=== PATIENT | female | born 1935 | race Caucasian/White ===

== ENCOUNTER 2017-12-04 13:41 | Emergency (ER) | payer MEDICARE ==
[~2017-12-04 13:41] MED LIST: CLOP75TA14 PO; CRAN250T2 PO; CRAN450T6 PO; FURO40TA7 PO; HYDR-4060 PO; IPRA3AMP24 IH; LOSA25TA16 PO; LUBI24CA2 PO; OMEP20TA25 PO; SOTA80TA PO; SPIR25TA PO
[2017-12-04 14:18] LABS: APPEARANCE,URINE Cloudy (CLEAR); BILIRUBIN,URINE Negative (NEGATIVE); COLOR,URINE Yellow (YELLOW); GLUCOSE, URINE (UA) Negative (NEGATIVE); KETONES,URINE Negative (NEGATIVE); LEUKOCYTE ESTERASE ,URINE Trace (NEGATIVE); NITRATE,URINE Negative (NEGATIVE); OCCULT BLOOD,URINE Negative (NEGATIVE); PROTEIN,URINE Negative (NEGATIVE)
[2017-12-04 14:35] LABS: BASOPHILS % (AUTO) 1.3 % (0.0-5.0); EOSINOPHILS % (AUTO) 5.8 % (0.0-8.0); HEMATOCRIT 31.7 % (36-48); LYMPHOCYTES % (AUTO) 12.3 % (21.0-51.0); MEAN CORPUSCULAR HEMOGLOBIN 25.8 pg (27.0-33.0); MEAN CORPUSCULAR HGB CONC 32.8 g/dL (32.0-36.0); MEAN CORPUSCULAR VOLUME 78.5 fL (79-99); MONOCYTES % (AUTO) 8.7 % (3.0-13.0); NEUTROPHILS % (AUTO) 71.9 % (40.0-77.0); PLATELET COUNT (AUTO) 237 K/uL (130-400); RED BLOOD CELL COUNT(AUTO) 4.03 MIL/uL (4.00-5.50); RED CELL DISTRIBUTION WIDTH 21.4 % (11.0-15.5)
[2017-12-04 14:40] LABS: BACTERIA,URINE Few /HPF (None Seen); MUCUS,URINE Few LPF (None Seen); RBC,URINE None Seen /HPF (0-1); WBC,URINE 0-1 /HPF (0-1)
[2017-12-04 14:45] LABS: POTASSIUM 4.4 mmol/L (3.5-5.1)
[2017-12-04 14:50] LABS: ALBUMIN 3.7 g/dL (3.5-5.0); BILIRUBIN,TOTAL 0.5 mg/dL (0.2-1.0); TOTAL PROTEIN, SERUM 7.7 g/dL (6.0-8.3)
[2017-12-04] MEDS ORDERED: MORPHINE SULFATE 4 MG/1ML SYG ONE (15:14)
[2017-12-04] MEDS ORDERED: ONDANSETRON HCL 4 MG/2 ML VIAL ONE (15:15)
[2017-12-04] MEDS ORDERED: DiphenhydrAMINE HCL 50 MG/ML VIAL ONE (15:22)
[2017-12-04 15:44] LABS: AMYLASE 31 U/L (25-115); LIPASE 181 U/L (114-286)
[2017-12-04] MEDS ORDERED: TRAMADOL HCL 50 MG TABLET ONE (16:45)
== END 2017-12-04 17:15 | disposition home or self-care (01) ==
LOC: EDH 13:41
DX: M54.14 Radiculopathy, thoracic region (principal); N28.9 Disorder of kidney and ureter, unspecified; I48.91 Unspecified atrial fibrillation; I11.0 Hypertensive heart disease with heart failure; I50.9 Heart failure, unspecified; I25.10 Atherosclerotic heart disease of native coronary artery without angina pectoris; J44.9 Chronic obstructive pulmonary disease, unspecified; K21.9 Gastro-esophageal reflux disease without esophagitis; Z88.6 Allergy status to analgesic agent; Z88.0 Allergy status to penicillin; Z88.2 Allergy status to sulfonamides; Z91.030 Bee allergy status; Z87.891 Personal history of nicotine dependence
CPT/HCPCS: 36415; 74176; 80053; 81001; 82150; 83690; 83880; 84484 ×2; 85025; 93005; 96374; 96375; 99285; J1200; J2270; J2405

== ENCOUNTER → 2018-03-07 | Outpatient (CLI) | payer MEDICARE ==
[~2018-03-07] MED LIST changes: -LOSA25TA16 PO; +LOSA25TA41 PO
== END | disposition home or self-care (01) ==
LOC: OIH 15:34
PROVIDERS: ATTEND Internal Medicine Cardiovascular Disease
DX: R06.00 Dyspnea, unspecified (principal); M47.815 Spondylosis without myelopathy or radiculopathy, thoracolumbar region
CPT/HCPCS: 71046

== ENCOUNTER 2018-06-27 23:30 | Emergency (ER) | payer MEDICARE ==
[2018-06-28] MEDS ORDERED: ONDANSETRON HCL 4 MG/2 ML VIAL ONE (00:41)
[2018-06-28] MEDS ORDERED: FENTANYL CITRATE PF 50 MCG/1 ML 2ML VIAL ONE (00:42)
[2018-06-28 00:53] LABS: APPEARANCE,URINE SL CLOUDY (CLEAR); BILIRUBIN,URINE NEGATIVE (NEGATIVE); COLOR,URINE YELLOW (YELLOW); GLUCOSE, URINE (UA) NEGATIVE (NEGATIVE); KETONES,URINE NEGATIVE (NEGATIVE); LEUKOCYTE ESTERASE ,URINE MODERATE (NEGATIVE); NITRATE,URINE POSITIVE (NEGATIVE); OCCULT BLOOD,URINE SMALL (NEGATIVE); PH,URINE 5.5 (5.0-8.0); PROTEIN,URINE NEGATIVE (NEGATIVE); UROBILINOGEN,URINE 0.2 mg/dL (0.2-1.0)
[2018-06-28 01:05] LABS: BACTERIA,URINE Many /HPF (None Seen); MUCUS,URINE Few LPF (None Seen); WBC,URINE 51-100 /HPF (0-1)
[2018-06-28 01:16] LABS: BASOPHILS % (AUTO) 1.2 % (0.0-5.0); HEMATOCRIT 34.2 % (36-48); LYMPHOCYTES % (AUTO) 14.7 % (21.0-51.0); MEAN CORPUSCULAR HEMOGLOBIN 28.7 pg (27.0-33.0); MEAN CORPUSCULAR HGB CONC 33.7 g/dL (32.0-36.0); MEAN CORPUSCULAR VOLUME 85.1 fL (79-99); MONOCYTES % (AUTO) 9.7 % (3.0-13.0); NEUTROPHILS % (AUTO) 71.4 % (40.0-77.0); PLATELET COUNT (AUTO) 204 K/uL (130-400); RED BLOOD CELL COUNT(AUTO) 4.02 MIL/uL (4.00-5.50); RED CELL DISTRIBUTION WIDTH 15.9 % (11.0-15.5); WHITE BLOOD COUNT (AUTO) 4.8 K/uL (4.8-10.8)
[2018-06-28 01:16] LABS: AMPHET/METH SCREEN,URINE NEGATIVE (NEGATIVE); BARBITURATE SCREEN, URINE NEGATIVE (NEGATIVE); BENZODIAZEPINES SCREEN,URINE NEGATIVE (NEGATIVE); CANNABINOID SCREEN,URINE POSITIVE (NEGATIVE); COCAINE SCREEN,URINE NEGATIVE (NEGATIVE); OPIATE SCREEN,URINE NEGATIVE (NEGATIVE); PHENCYCLIDINE SCREEN,URINE NEGATIVE (NEGATIVE)
[2018-06-28] MEDS ORDERED: LEVOFLOXACIN 500 MG/D5W 100 ML 100 ML ONE (01:26)
[2018-06-28 01:27] LABS: CREATININE 1.6 mg/dL (0.5-1.5)
[2018-06-28 01:32] LABS: INR 0.94 (0.85-1.15); PARTIAL THROMBOPLASTIN TIME 33.7 SEC (26.3-35.5); PROTHROMBIN TIME 9.9 SEC (9.6-11.6)
[2018-06-28 01:36] LABS: ALBUMIN 3.6 g/dL (3.5-5.0); BILIRUBIN,DIRECT 0.1 mg/dL (0.0-0.3); BILIRUBIN,TOTAL 0.4 mg/dL (0.2-1.0); TOTAL PROTEIN, SERUM 7.6 g/dL (6.0-8.3)
== END 2018-06-28 02:24 | disposition home or self-care (01) ==
LOC: EDH 23:30
DX: N12 Tubulo-interstitial nephritis, not specified as acute or chronic (principal); I11.0 Hypertensive heart disease with heart failure; I50.9 Heart failure, unspecified; I25.10 Atherosclerotic heart disease of native coronary artery without angina pectoris; I48.91 Unspecified atrial fibrillation; J44.9 Chronic obstructive pulmonary disease, unspecified; Z88.0 Allergy status to penicillin; Z88.2 Allergy status to sulfonamides; Z88.5 Allergy status to narcotic agent; Z88.6 Allergy status to analgesic agent; Z91.030 Bee allergy status; Z91.041 Radiographic dye allergy status
CPT/HCPCS: 36415; 74176; 80048; 80076; 80305; 81001; 83690; 84484; 85025; 85610; 85730; 93005; 96365; 96375; 99285; J1956; J2405; J3010; 96374

== ENCOUNTER 2020-01-01 00:28 | Inpatient (IN) | payer MEDICARE ==
[2020-01-01] VITALS (31 sets, daily range): BP systolic 58–131; BP diastolic 30–85
[~2020-01-01] VITALS: Ht 167.6 cm; Wt 76.2 kg
[2020-01-01] MEDS ORDERED: NITROGLYCERIN 50 MG/D5% WATER 0 BOT ONE (00:57)
[2020-01-01] MEDS ORDERED: BIVALIRUDIN 250 MG/VIAL IV ONE (01:05)
[2020-01-01] MEDS ORDERED: HEPARIN SODIUM 1000UNIT/ML 10ML VIAL ONE (01:05)
[2020-01-01] MEDS ORDERED: IOHEXOL 350 MG/ML 100ML INFUS..BTL IV ONE (01:06)
[2020-01-01] MEDS ORDERED: IOHEXOL-350 50ML VIAL IV ONE (01:06)
[2020-01-01] MEDS ORDERED: NITROGLYCERIN 2 MG/VIAL VIAL IV ONE (01:06)
[2020-01-01] MEDS ORDERED: LIDOCAINE HCL 2% 20ML ONE (01:06)
[2020-01-01] MEDS ORDERED: MIDAZOLAM HCL 1 MG/ML 2ML VIAL ONE (01:07)
[2020-01-01] MEDS ORDERED: ONDANSETRON HCL 4 MG/2 ML VIAL ONE (01:08)
[2020-01-01] MEDS ORDERED: HEPARIN SODIUM 5000UNIT/ML 1ML VIAL ONE (01:08)
[2020-01-01] MEDS ORDERED: TICAGRELOR 90 MG TABLET ONE (01:15)
[2020-01-01] MEDS ORDERED: METHYLPREDNISOLONE SOD SUCC 125MG/2ML VIAL ONE (01:23)
[2020-01-01] MEDS ORDERED: DiphenhydrAMINE HCL 50 MG/ML VIAL ONE (01:23)
[2020-01-01] MEDS ORDERED: MAG HYDROX/AL HYDROX/SIMETH ES 30 ML SUSP UDCUP PO PRN (01:30)
[2020-01-01] MEDS ORDERED: ONDANSETRON HCL 4 MG/2 ML VIAL IV PRN (01:30)
[2020-01-01] MEDS ORDERED: ACETAMINOPHEN 325 MG TAB PO PRN ×2 (01:30)
[2020-01-01] MEDS ORDERED: LACTULOSE 20 GM/30 ML UDCUP PO PRN (01:30)
[2020-01-01] MEDS ORDERED: FENTANYL CITRATE PF 50 MCG/1 ML 2ML VIAL ONE (01:32)
[2020-01-01] MEDS ORDERED: NOREPINEPHRINE BITARTRATE 1 MG/1 ML ML IV ONE (01:40)
[2020-01-01] MEDS ORDERED: FAMOTIDINE/PF 20 MG/2 ML VIAL IV ONE (01:43)
[2020-01-01 01:49] LABS: BASOPHILS % (AUTO) 0.7 % (0.0-5.0); EOSINOPHILS % (AUTO) 1.6 % (0.0-8.0); HEMATOCRIT 42.1 % (36-48); LYMPHOCYTES % (AUTO) 33.1 % (21.0-51.0); MEAN CORPUSCULAR HEMOGLOBIN 30.4 pg (27.0-33.0); MEAN CORPUSCULAR HGB CONC 31.8 g/dL (32.0-36.0); MEAN CORPUSCULAR VOLUME 95.5 fL (79-99); MONOCYTES % (AUTO) 7.4 % (3.0-13.0); NEUTROPHILS % (AUTO) 56.7 % (40.0-77.0); PLATELET COUNT (AUTO) 260 K/uL (130-400); RED BLOOD CELL COUNT(AUTO) 4.41 MIL/uL (4.00-5.50); RED CELL DISTRIBUTION WIDTH 12.9 % (11.0-15.5)
[2020-01-01] MEDS ORDERED: ATROPINE SULFATE 0.1 MG/ML 10 ML SYG IVP ONE (01:49)
[2020-01-01] MEDS ORDERED: DOPAMINE HCL 400 MG/D5%-WATER 0 ML IV ONE (01:50)
[2020-01-01 01:59] LABS: POTASSIUM 3.8 mmol/L (3.5-5.1)
[2020-01-01 02:06] LABS: ALBUMIN 3.2 g/dL (3.5-5.0); BILIRUBIN,TOTAL 0.3 mg/dL (0.2-1.0); TOTAL PROTEIN, SERUM 6.8 g/dL (6.0-8.3)
[2020-01-01] MEDS ORDERED: MILRINONE-D5W 20 MG/100 ML 100 ML IV ONE (02:38)
[2020-01-01] MEDS ORDERED: HYDROCODONE/ACETAMINOPHEN 5/325 MG TAB PO PRN (03:00)
[2020-01-01] MEDS ORDERED: IPRATROPIUM/ALBUTEROL SULFATE 3 ML SOLUTION IH PRN (03:00)
[2020-01-01] MEDS ORDERED: PHARMACY COMMUNICATION MISC SCH (03:00)
[2020-01-01] MEDS ORDERED: MILRINONE-D5W 20 MG/100 ML 100 ML IV SCH (03:00)
[2020-01-01] MEDS: FUROSEMIDE 10 MG/ML 2ML VIAL IV SCH ×2 (04:57→13:44)
[2020-01-01] MEDS: SODIUM CHLORIDE 0.9% 10 ML VIAL IVP SCH ×3 (04:58→18:20)
[2020-01-01 06:21] LABS: HEMATOCRIT 46.5 % (36-48); MEAN CORPUSCULAR HGB CONC 30.1 g/dL (32.0-36.0); MEAN CORPUSCULAR VOLUME 99.6 fL (79-99); NUCLEATED RED BLOOD CELLS 0.1 % (0.0-0.19); PLATELET COUNT (AUTO) 243 K/uL (130-400); RED BLOOD CELL COUNT(AUTO) 4.67 MIL/uL (4.00-5.50); RED CELL DISTRIBUTION WIDTH 13.2 % (11.0-15.5); WHITE BLOOD COUNT (AUTO) 15.8 K/uL (4.8-10.8)
[2020-01-01 06:35] LABS: INR 1.16 (0.85-1.15); PARTIAL THROMBOPLASTIN TIME 84.4 SEC (26.3-35.5); PROTHROMBIN TIME 12.5 SEC (9.6-11.6)
[2020-01-01 07:08] LABS: CREATININE 2.7 mg/dL (0.5-1.5); POTASSIUM 3.3 mmol/L (3.5-5.1)
[2020-01-01 07:17] LABS: TROPONIN I 22.92 ng/mL (0.00-0.06)
[2020-01-01] MEDS ORDERED: FAMOTIDINE/PF 20 MG/2 ML VIAL IV SCH (09:00)
[2020-01-01] MEDS ORDERED: PANTOPRAZOLE SODIUM 40 MG TABLET.DR PO SCH (09:00)
[2020-01-01] MEDS: TICAGRELOR 90 MG TABLET PO SCH ×2 (09:00→21:00)
[2020-01-01] MEDS ORDERED: ALLOPURINOL 100 MG TABLET PO SCH (09:00)
[2020-01-01] MEDS ORDERED: FENTANYL CITRATE PF 50 MCG/1 ML 2ML VIAL IVP PRN (09:45)
[2020-01-01] MEDS ORDERED: DIGOXIN 250 MCG/ML 2ML AMP IV SCH (10:00)
[2020-01-01] MEDS ORDERED: MAGNESIUM 2GM PREMIX 50ML 50 ML IV PRN (11:30)
[2020-01-01] MEDS ORDERED: BRIM5DRO4 OP (13:03)
[2020-01-01] MEDS ORDERED: HYDROMORPHONE HCL 0.5 MG/0.5 ML ML IVP PRN (13:30)
[2020-01-01] MEDS ORDERED: DOCUSATE SODIUM 100 MG CAP PO ONE (13:43)
[2020-01-01] MEDS: BISACODYL 5 MG TABLET.DR PO SCH ×2 (13:45→21:00)
[2020-01-01] MEDS: HYDROMORPHONE 1 MG/1 ML AMP IVP PRN ×2 (13:45→18:22)
[2020-01-01] MEDS ORDERED: SIMETHICONE 80 MG TAB.CHEW PO PRN (14:00)
--- NOTE | 2020-01-01 15:19 | NUR ---
LISA DORADO Spoke with patient's , Manpreet Nolasco [phone]. As per spouse, patient lives with him, and is independent of ADLs. Mr Nolasco states "she has some sort of home health service but i don't know what it is. the nurse comes once a week." Mr Nolasco is unaware of the name. Mr Nolasco further stated that the patient has oxygen at home, but doesn't know what kind or what [employer] provides it. Mr Nolasco was able to provide and updated physical address of: [address] [place] [address] [facility] of: [address] [place] [address] CM to follow up. Addendum: 01/01/20 at 1529 by AXEL GREEN Amended: Links added.
[2020-01-01] MEDS ORDERED: SODIUM CHLORIDE 0.9% 1000ML 1,000 ML IV SCH (19:30)
[2020-01-01] MEDS ORDERED: NOREPINEPHRINE 4MG/NS 250ML 250 ML IV SCH (20:30)
[2020-01-01] MEDS ORDERED: NOREPINEPHRINE 4MG/NS 250ML 250 ML IV ONE (20:32)
[2020-01-01] MEDS ORDERED: DOCUSATE SODIUM 100 MG CAP PO SCH (21:00)
[2020-01-01] MEDS ORDERED: ZOSYN 3.375GM+NS 50ML 50 ML IV SCH (21:00)
--- NOTE | 2020-01-01 23:39 | NUR ---
Family The nurse spoke to the , Manpreet at shift change and updated him of his 's status. The nurse asked how aggressive he would like to treat his 's blood pressure. stated "do what you can". Order received for levophed and 2 L bolus. Contacted several more times and explained to him about the patients rhythm change and poor status. The house sup and nurse allowed for the and two children to see the patient prior to at 2242. took patients valuables and will call back tomorrow about arrangements.
--- NOTE | 2020-01-02 17:28 | NUR ---
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 1100 [place] risk consultant notified. 1140 Spoke via phone to spouse regarding order for autopsy and inform him to come in to sign consent verbalized understanding he agreed and will come in to sign consent. [address] Hall to inform of autopsy she recommended to contact Dr Bravo. [address] [facility] spoke with Yvette coordinator which also advise to call Dr Bravo at [phone] Bravo no answer message left. mean while consent obtained and chart copied. [address] Bravo and he was inform of pt and autopsy request verbalized understanding and asked to make arrangements and sent body to [facility]. 1310 spouse making cremation arrangements spoke with Yvette regarding pricing at this time he will make other calls and will inform Yvette of home post autopsy. 1320 face sheet and order for autopsy fax to Margie and inform her to send transportation. Now pending transporter. 1416 transporter here for body, Leandro plasencia
== END 2020-01-01 22:42 | disposition expired ==
LOC: EDH 00:28 → EDHIP 00:45 → 2CH 03:41
PROVIDERS: ADMIT Internal Medicine; ATTEND Internal Medicine
PROC: 4A023N8 Measurement of Cardiac Sampling and Pressure, Bilateral, Percutaneous Approach (ICD-10-PCS; principal; 2020-01-01)
PROC: B2111ZZ Fluoroscopy of Multiple Coronary Arteries using Low Osmolar Contrast (ICD-10-PCS; 2020-01-01)
DX: T82.855A Stenosis of coronary artery stent, initial encounter (principal); I50.21 Acute systolic (congestive) heart failure; I21.19 ST elevation (STEMI) myocardial infarction involving other coronary artery of inferior wall; I31.3 Pericardial effusion (noninflammatory); I25.10 Atherosclerotic heart disease of native coronary artery without angina pectoris; I48.0 Paroxysmal atrial fibrillation; K21.9 Gastro-esophageal reflux disease without esophagitis; J44.9 Chronic obstructive pulmonary disease, unspecified; I11.0 Hypertensive heart disease with heart failure; I08.1 Rheumatic disorders of both mitral and tricuspid valves; M19.90 Unspecified osteoarthritis, unspecified site; I73.9 Peripheral vascular disease, unspecified; M10.9 Gout, unspecified; R57.0 Cardiogenic shock; Z66 Do not resuscitate; Y83.8 Other surgical procedures as the cause of abnormal reaction of the patient, or of later complication, without mention of misadventure at the time of the procedure; Y92.89 Other specified places as the place of occurrence of the external cause; Z79.02 Long term (current) use of antithrombotics/antiplatelets; Z79.899 Other long term (current) drug therapy; Z87.891 Personal history of nicotine dependence; Z90.710 Acquired absence of both cervix and uterus; Z95.5 Presence of coronary angioplasty implant and graft; Z95.818 Presence of other cardiac implants and grafts; Z91.041 Radiographic dye allergy status; Z88.6 Allergy status to analgesic agent; Z88.5 Allergy status to narcotic agent; Z88.0 Allergy status to penicillin; Z88.2 Allergy status to sulfonamides; Z88.8 Allergy status to other drugs, medicaments and biological substances
CPT/HCPCS: 36415; 71045; 71250; 74018; 80048; 80053; 80061; 82550; 82948; 83605; 83874; 84484; 85025; 85027; 85610; 85730; 93005; 93306; 93458; 93460; 94664; 99156; 99157; A4344; C1769; C1887; C1893; C1894; G0378; J0461; J0583; J1160; J1170; J1200; J1265; J1644; J1940; J2250; J2260; J2405; J2930; J3010; J3490; J7030; Q9967